=== PATIENT | male | born 1980 | race American Indian/Alaskan Native ===

== ENCOUNTER 2018-06-23 13:08 | Emergency (ER) | payer MEDICAID, OTHER ==
[2018-06-23] MEDS ORDERED: Sodium Chloride 0.9% 10 ML Syringe FLUSH PRN (13:24)
--- NOTE | 2018-06-23 13:25 | EDM.PDOC ---
ED HPI GENERAL MEDICAL PROBLEM - General Chief Complaint: Chest Pain Stated Complaint: FEELING WEAK, HURT HEARTS [id number] Time Seen by Provider: 06/23/18 13:25 Source of Information: Reports: Patient, RN, RN Notes Reviewed History Limitations: Reports: No Limitations - History of Present Illness INITIAL COMMENTS - FREE TEXT/NARRATIVE: Pt to ER with c/o sharp chest pains, anxiety, and numbness in the hands and fingers. Pt states symptoms are intermittent. Patient states he has a hx of anxiety and has been prescribed medications for anxiety by [facility]. He states he has taken 2 of those pills this week and they helped him to sleep. Patient states he is on Suboxone, but ran out of it a week ago. He states he had a refill 2 days ago but doesn't think he wants to refill it because it is bad for the body. Admits to Marijuana use and alcohol (about 12 pack of beer per week). Denies any other health problems, but states he once had "air in his chest". Unsure of how long ago, or why. Onset: Gradual Chest Pain Score (Numeric/FACES): 3 - Related Data Allergies Allergy/AdvReac Type Severity Reaction Status Date / Time No Known Allergies Allergy Verified 06/23/18 13:29 Home Meds: Home Meds Buprenorphine HCl/Naloxone HCl [Suboxone 12 mg-3 mg Sl Film] 1 each SL DAILY 11/03 [History] Past Medical History - Past Health History Medical/Surgical History: Denies Medical/Surgical History ED ROS GENERAL - Review of Systems Review Of Systems: ROS reveals no pertinent complaints other than HPI. ED EXAM, GENERAL - Physical Exam Exam: See Below Exam Limited By: No Limitations General Appearance: Alert, WD/WN, Anxious Eye Exam: Bilateral Eye: EOMI, Normal Inspection Ears: Normal External Exam, Hearing Grossly Normal Nose: Normal Inspection Throat/Mouth: Normal Inspection, Normal Voice, No Airway Compromise Head: Atraumatic, Normocephalic Neck: Normal Inspection, Supple, Non-Tender, Full Range of Motion Respiratory/Chest: No Respiratory Distress, Lungs Clear, Normal Breath Sounds, No Accessory Muscle Use, Chest Non-Tender Cardiovascular: Normal Peripheral Pulses, Regular Rate, Rhythm, No Edema, No Gallop, No JVD, No Murmur, No Rub Peripheral Pulses: 2+: Radial (L), Radial (R) GI/Abdominal: Normal Bowel Sounds, Soft, Non-Tender (Male) Exam: Deferred Rectal (Males) Exam: Deferred Back Exam: Normal Inspection, Full Range of Motion, NT Extremities: Normal Inspection, Normal Range of Motion, Non-Tender, Normal Capillary Refill, No Pedal Edema Neurological: Alert, Oriented, CN II-XII Intact, Normal Cognition, Normal Gait, Normal Reflexes, No Motor/Sensory Deficits Psychiatric: Anxious Skin Exam: Warm, Dry, Intact, Normal Color, No Rash Lymphatic: No Adenopathy EKG INTERPRETATION EKG Date: 06/23/18 Time: 13:26 Rhythm: NSR Rate (Beats/Min): 61 [place]: Normal P-Wave: Present QRS: Normal ST-T: Normal QT: Normal Comparison: NA - No Prior EKG Course - Vital Signs Last Recorded V/S: Last Vital Signs Temp 97.2 F 06/23/18 13:32 Pulse 84 06/23/18 13:32 Resp 16 06/23/18 13:32 BP 130/87 06/23/18 13:32 Pulse Ox 100 06/23/18 13:32 - Orders/Labs/Meds Orders: Active Orders 24 hr Category Date Time Status EKG Documentation Completion [RC] STAT Care 06/23/18 13:24 Active Peripheral IV Care [RC] . DIRECTED Care 06/23/18 13:25 Active UA W/MICROSCOPIC [URIN] Stat Lab 06/23/18 13:42 Results Sodium Chloride 0.9% [Saline Flush] Med 06/23/18 13:24 Active 10 ml FLUSH ASDIRECTED PRN Peripheral IV Insertion Adult [OM.PC] Stat Oth 06/23/18 13:24 Ordered Medication Orders Sodium Chloride (Saline Flush) 10 ml FLUSH ASDIRECTED PRN PRN Reason: Keep Vein Open Last Admin: 06/23/18 13:31 Dose: 10 ml Labs: Laboratory Tests 06/23/18 06/23/18 06/23/18 Range/Units 13:35 13:35 13:35 WBC 5.8 (5.0-10.0) 10^3/uL RBC 4.36 L (4.6-6.2) 10^6/uL Hgb 13.3 L (14.0-18.0) g/dL Hct 39.8 L (40.0-54.0) % MCV 91.3 (80-100) fL MCH 30.5 (27.0-34.0) pg MCHC 33.4 (33.0-35.0) g/dL Plt Count 254 (150-450) 10^3/uL Neut % (Auto) 57.3 (42.2-75.2) % Lymph % (Auto) 34.5 (20.5-50.1) % [place] % (Auto) 7.3 (2-8) % Eos % (Auto) 0.9 L (1.0-3.0) % Baso % (Auto) 0.0 (0.0-1.0) % PT 9.5 (9.0-12.0) SEC INR 1.0 (0.9-1.2) Sodium 136 (135-145) mmol/L Potassium 3.7 (3.6-5.0) mmol/L Chloride 108 (101-111) mmol/L Carbon Dioxide 21.0 (21.0-31.0) mmol/L Anion Gap 10.7 BUN 8 (7-18) mg/dL Creatinine 0.7 (0.6-1.3) mg/dL Est Cr Clr Drug Dosing TNP Estimated GFR (MDRD) > 60 BUN/Creatinine Ratio 11.42 Glucose 104 (74-105) mg/dL Calcium 8.4 (8.4-10.2) mg/dl Total Bilirubin 0.2 (0.2-1.0) mg/dL AST 22 (10-42) IU/L ALT 14 (10-60) IU/L Alkaline Phosphatase 61 (42-121) IU/L Troponin I < 0.02 (0.00-0.08) ng/mL Total Protein 7.6 (6.7-8.2) g/dl Albumin 4.0 (3.2-5.5) g/dl Globulin 3.6 Albumin/Globulin Ratio 1.11 Urine Color (YELLOW) Urine Appearance (CLEAR) Urine pH (5.0-9.0) Ur Specific [place] (1.005-1.030) Urine Protein (NEGATIVE) Urine Glucose (UA) (NEGATIVE) Urine Ketones (NEGATIVE) Urine Occult Blood (NEGATIVE) Urine Nitrite (NEGATIVE) Urine Bilirubin (NEGATIVE) Urine Urobilinogen (0.2-1.0) mg/dL Ur Leukocyte Esterase (NEGATIVE) Urine Opiates Screen (NEGATIVE) Ur Oxycodone Screen (NEGATIVE) Urine Methadone Screen (NEGATIVE) Ur Barbiturates Screen (NEGATIVE) U Tricyclic Antidepress (NEGATIVE) Ur Phencyclidine Scrn (NEGATIVE) Ur Amphetamine Screen (NEGATIVE) U Methamphetamines Scrn (NEGATIVE) Urine MDMA Screen (NEGATIVE) U Benzodiazepines Scrn (NEGATIVE) Urine Cocaine Screen (NEGATIVE) U Marijuana (THC) Screen (NEGATIVE) Ethyl Alcohol < 5 mg/dL 06/23/18 06/23/18 Range/Units 13:36 13:42 WBC (5.0-10.0) 10^3/uL RBC (4.6-6.2) 10^6/uL Hgb (14.0-18.0) g/dL Hct (40.0-54.0) % MCV (80-100) fL MCH (27.0-34.0) pg MCHC (33.0-35.0) g/dL Plt Count (150-450) 10^3/uL Neut % (Auto) (42.2-75.2) % Lymph % (Auto) (20.5-50.1) % [place] % (Auto) (2-8) % Eos % (Auto) (1.0-3.0) % Baso % (Auto) (0.0-1.0) % PT (9.0-12.0) SEC INR (0.9-1.2) Sodium (135-145) mmol/L Potassium (3.6-5.0) mmol/L Chloride (101-111) mmol/L Carbon Dioxide (21.0-31.0) mmol/L Anion Gap BUN (7-18) mg/dL Creatinine (0.6-1.3) mg/dL Est Cr Clr Drug Dosing Estimated GFR (MDRD) BUN/Creatinine Ratio Glucose (74-105) mg/dL Calcium (8.4-10.2) mg/dl Total Bilirubin (0.2-1.0) mg/dL AST (10-42) IU/L ALT (10-60) IU/L Alkaline Phosphatase (42-121) IU/L Troponin I (0.00-0.08) ng/mL Total Protein (6.7-8.2) g/dl Albumin (3.2-5.5) g/dl Globulin Albumin/Globulin Ratio Urine Color Yellow (YELLOW) Urine Appearance Clear (CLEAR) Urine pH 7.0 (5.0-9.0) Ur Specific [place] 1.015 (1.005-1.030) Urine Protein Negative (NEGATIVE) Urine Glucose (UA) Negative (NEGATIVE) Urine Ketones Negative (NEGATIVE) Urine Occult Blood Small H (NEGATIVE) Urine Nitrite Negative (NEGATIVE) Urine Bilirubin Negative (NEGATIVE) Urine Urobilinogen 0.2 (0.2-1.0) mg/dL Ur Leukocyte Esterase Negative (NEGATIVE) Urine Opiates Screen Negative (NEGATIVE) Ur Oxycodone Screen Negative (NEGATIVE) Urine Methadone Screen Negative (NEGATIVE) Ur Barbiturates Screen Negative (NEGATIVE) U Tricyclic Antidepress Negative (NEGATIVE) Ur Phencyclidine Scrn Negative (NEGATIVE) Ur Amphetamine Screen Negative (NEGATIVE) U Methamphetamines Scrn Negative (NEGATIVE) Urine MDMA Screen Negative (NEGATIVE) U Benzodiazepines Scrn Negative (NEGATIVE) Urine Cocaine Screen Negative (NEGATIVE) U Marijuana (THC) Screen Negative (NEGATIVE) Ethyl Alcohol mg/dL Meds: Medications Generic Name Dose Route Start Last Admin Trade Name Freq PRN Reason Stop Dose Admin Sodium Chloride 10 ml 06/23/18 13:24 06/23/18 13:31 Saline Flush FLUSH 10 ml ASDIRECTED PRN Administration Keep Vein Open Discontinued Medications Generic Name Dose Route Start Last Admin Trade Name Freq PRN Reason Stop Dose Admin Lorazepam 0.5 mg 06/23/18 14:18 06/23/18 14:23 Ativan IVPUSH 06/23/18 14:19 0.5 mg ONETIME ONE Administration - Re-Assessments/Exams Free Text/Narrative Re-Assessment/Exam: 06/23/18 14:26 Patient states he will have his daughter come and pick him up. Departure - Departure Time of Disposition: 14:21 Disposition: Home, Self-Care 01 Condition: Fair Clinical Impression: Anxiety Instructions: Generalized Anxiety Disorder, Adult, Panic Attack, [id number] Forms: ED Department Discharge Additional Instructions: Use already prescribed anxiety medications Follow up with [facility] - My Orders Last 24 Hours: My Active Orders 06/23/18 13:24 EKG Documentation Completion [RC] STAT Sodium Chloride 0.9% [Saline Flush] 10 ml FLUSH ASDIRECTED PRN Peripheral IV Insertion Adult [OM.PC] Stat 06/23/18 13:25 Peripheral IV Care [RC] . DIRECTED 06/23/18 13:42 UA W/MICROSCOPIC [URIN] Stat - Assessment/Plan Last 24 Hours: My Active Orders 06/23/18 13:24 EKG Documentation Completion [RC] STAT Sodium Chloride 0.9% [Saline Flush] 10 ml FLUSH ASDIRECTED PRN Peripheral IV Insertion Adult [OM.PC] Stat 06/23/18 13:25 Peripheral IV Care [RC] . DIRECTED 06/23/18 13:42 UA W/MICROSCOPIC [URIN] Stat
[2018-06-23 14:01] LABS: ANION GAP 10.7; CHLORIDE,CL 108 mmol/L (101-111); SODIUM,NA 136 mmol/L (135-145)
[2018-06-23] MEDS ORDERED: LORazepam 2 MG/ML Syringe IVPUSH ONE (14:18)
== END 2018-06-23 14:38 | disposition home or self-care (01) ==
LOC: DL.ED 13:08
DX: F41.9 Anxiety disorder, unspecified (principal)
CPT/HCPCS: 36415; 80053; 80305; 81001; 84484; 85025; 85610; 93005; 96374; 99284; G0480; J2060

== ENCOUNTER 2022-12-19 19:24 | Emergency (ER) | payer MEDICAID ==
[2022-12-19] MEDS ORDERED: Sodium Chloride 0.9% 10 ML Syringe FLUSH PRN (20:56)
[2022-12-19] MEDS ORDERED: Acetaminophen 500 MG Tab PO ONE (20:56)
[2022-12-19] MEDS ORDERED: Ketorolac 30 MG/ML SDV IM ONE (20:56)
[2022-12-19] MEDS ORDERED: Sodium Chloride 0.9% 1,000 ML IV ONE ×2 (20:57→22:11)
[2022-12-19 21:04] LABS: CORONAVIRUS COVID-19 NAA NEGATIVE (NEGATIVE); INFLUENZA A NAA NEGATIVE (NEGATIVE); INFLUENZA B NAA NEGATIVE (NEGATIVE); RESPIRATORY SYNCYTIAL VIR NAA NEGATIVE (NEGATIVE)
[2022-12-19 21:05] LABS: BASOPHILS PERCENT AUTO 0.5 % (0.0-1.0); EOSINOPHILS PERCENT AUTO 3.7 % (1.0-3.0); HEMATOCRIT 45.6 % (40.0-54.0); LYMPHOCYTES PERCENT AUTO 15.4 % (20.5-50.1); MEAN CORPUSCULAR HEMOGLOBIN 31.9 pg (27.0-34.0); MEAN CORPUSCULAR HGB CONC 35.1 g/dL (33.0-35.0); MEAN CORPUSCULAR VOLUME 90.8 fL (80-100); MONOCYTES PERCENT AUTO 6.5 % (2-8); NEUTROPHILS PERCENT AUTO 73.9 % (42.2-75.2); PLATELET COUNT,PLT 160 10^3/uL (150-450); RED BLOOD CELL COUNT 5.02 10^6/uL (4.6-6.2); WHITE BLOOD CELL COUNT,WBC 6.2 10^3/uL (5.0-10.0)
[2022-12-19 21:28] LABS: LACTIC ACID 0.9 mmol/L (0.4-2.0)
[2022-12-19 21:34] LABS: ALBUMIN 3.2 g/dL (3.4-5.0); BLOOD UREA NITROGEN,BUN 8 mg/dL (7-18); BUN/CREATININE RATIO 8.2 (No establ ref range); C-REACTIVE PROTEIN 6.25 ng/dL (<=0.30); CALCIUM 8.4 mg/dL (8.5-10.1); CREATININE 0.97 mg/dL (0.70-1.30); EST CRCL DRUG DOSING (CG) 106.67 mL/min; GLUCOSE RANDOM 111 mg/dL (70-99); MAGNESIUM 1.7 mg/dL (1.8-2.4); PROTEIN TOTAL,TP 8.7 g/dL (6.4-8.2)
[2022-12-19 21:51] LABS: ALANINE AMINOTRANSFERASE,ALT 981 U/L (16-63); ALKALINE PHOSPHATASE 159 U/L (46-116); ANION GAP 12.7 mEq/L (7-13); BILIRUBIN TOTAL 2.7 mg/dL (0.2-1.0); CARBON DIOXIDE,CO2 19 mmol/L (21-32); CHLORIDE,CL 99 mmol/L (98-107); POTASSIUM,K 3.7 mmol/L (3.5-5.1); SODIUM,NA 127 mmol/L (136-145)
[2022-12-19 21:52] LABS: A/G RATIO 0.58; ESTIMATED GFR 99 mL/min (>=60)
[2022-12-19 22:09] LABS: ASPARTATE AMNIOTRANSFERASE,AST > 1000 U/L (15-37)
[2022-12-19] MEDS ORDERED: Iopamidol 612 MG/ML 100 ML Bottle IVPUSH ONE (22:11)
[2022-12-19 22:20] LABS: APPEARANCE,URINE CLEAR (CLEAR); BILIRUBIN,URINE LARGE (NEGATIVE); COLOR,URINE DARK YELLOW (YELLOW); GLUCOSE,URINE 100 (NEGATIVE); KETONES,URINE 15 (NEGATIVE); LEUKOCYTE ESTERASE,URINE NEGATIVE (NEGATIVE); NITRITE,URINE NEGATIVE (NEGATIVE); OCCULT BLOOD,URINE TRACE-INTACT (NEGATIVE); PROTEIN,URINE 100 (NEGATIVE); UROBILINOGEN,URINE >=8.0 mg/dL (0.2-1.0)
[2022-12-19 22:28] LABS: BACTERIA,URINE OCCASIONAL /HPF (0-FEW/HPF); EPITHELIAL CELLS,URINE FEW /HPF (NOT SEEN); MUCUS,URINE FEW /LPF (NOT SEEN); WBC,URINE 0-5 /HPF (0-5/HPF)
[2022-12-19 22:30] LABS: AMYLASE 31 U/L (25-115); LIPASE 32 U/L (16-77)
[2022-12-19 22:55] LABS: PROTHROMBIN TIME 9.9 SEC (9.0-12.0)
== END 2022-12-19 23:48 | disposition home or self-care (01) ==
LOC: DL.ED 19:24
DX: A08.4 Viral intestinal infection, unspecified (principal); Z20.822 Contact with and (suspected) exposure to COVID-19
CPT/HCPCS: 0241U; 36415; 74177; 80053; 81001; 82150; 82550; 83605; 83690; 83735; 85025; 85610; 86140; 87040; 96360; 96361; 96372; 99284; 99284-25; A9270-GY; J1885; J3490; J7030; Q9967

== ENCOUNTER 2023-03-14 17:32 | Emergency (ER) | payer MEDICAID | END 2023-03-14 18:33 | disposition left against medical advice (07) | LOC: DL.ED 17:32 | DX: Z53.21 Procedure and treatment not carried out due to patient leaving prior to being seen by health care provider (principal) ==

== ENCOUNTER 2024-06-01 05:56 | Day surgery (SDC) | payer MEDICAID ==
[2024-06-01] MEDS ORDERED: Midazolam 1 MG/ML 2 ML SDV IV ONE (06:19)
[2024-06-01] MEDS ORDERED: fentaNYL 100 MCG/2 ML SDV ONE (06:19)
[2024-06-01] MEDS ORDERED: fentaNYL 100 MCG/2 ML SDV IV ONE (06:19)
[2024-06-01] MEDS ORDERED: Midazolam 1 MG/ML 2 ML SDV ONE (06:19)
[2024-06-01] MEDS: Dextrose 5%-0.45% NaCl 1,000 ML IV SCH (06:50)
[2024-06-01] MEDS: fentaNYL 100 MCG/2 ML SDV IV ONE ×2 (07:40)
[2024-06-01] MEDS: Midazolam 1 MG/ML 2 ML SDV IV ONE ×2 (07:41)
== END 2024-06-01 09:54 | disposition home health service (06) ==
LOC: DL.ENDO 05:56
PROVIDERS: ATTEND Internal Medicine Gastroenterology
DX: K29.50 Unspecified chronic gastritis without bleeding (principal); B96.81 Helicobacter pylori [H. pylori] as the cause of diseases classified elsewhere; K21.9 Gastro-esophageal reflux disease without esophagitis; I85.00 Esophageal varices without bleeding; K76.9 Liver disease, unspecified; D64.9 Anemia, unspecified
CPT/HCPCS: 43239; J2250; J3010

== ENCOUNTER 2024-06-02 05:24 | Day surgery (SDC) | payer MEDICAID ==
[2024-06-02] MEDS: Dextrose 5%-0.45% NaCl 1,000 ML IV SCH (05:47)
[2024-06-02] MEDS ORDERED: Midazolam 1 MG/ML 2 ML SDV IV ONE (06:21)
[2024-06-02] MEDS ORDERED: Midazolam 1 MG/ML 2 ML SDV ONE (06:21)
[2024-06-02] MEDS ORDERED: fentaNYL 100 MCG/2 ML SDV ONE (06:21)
[2024-06-02] MEDS ORDERED: fentaNYL 100 MCG/2 ML SDV IV ONE (06:21)
[2024-06-02] MEDS: fentaNYL 100 MCG/2 ML SDV IV ONE ×3 (06:27→06:37)
[2024-06-02] MEDS: Midazolam 1 MG/ML 2 ML SDV IV ONE ×6 (06:28→06:35)
== END 2024-06-02 09:53 | disposition home or self-care (01) ==
LOC: DL.ENDO 05:24
PROVIDERS: ATTEND Internal Medicine Gastroenterology
DX: D64.9 Anemia, unspecified (principal); D12.2 Benign neoplasm of ascending colon; K64.8 Other hemorrhoids; F10.20 Alcohol dependence, uncomplicated; K76.9 Liver disease, unspecified
CPT/HCPCS: J2250; J3010